=== PATIENT | male | born 1990 | race Caucasian/White ===

== ENCOUNTER 2017-05-10 13:56 | Emergency (ER) | payer MEDICAID ==
[~2017-05-10] VITALS: Ht 177.8 cm; Wt 86.8 kg
[~2017-05-10 13:56] MED LIST: NO HOME MEDS
[2017-05-10 14:01] VITALS: BP 120/83
[2017-05-10 14:18] LABS: CLARITY,URINE CLOUDY (Clear); COLOR,URINE YELLOW (Yellow); GLUCOSE, URINE NEGATIVE (Neg); KETONES,URINE NEGATIVE (Neg); LEUKOCYTE ESTERASE ,URINE SMALL (Neg); NITRITES, URINE NEGATIVE (Neg); OCCULT BLOOD,URINE TRACE-INTACT (Neg); PROTEIN,URINE TRACE mg/dl (Neg)
[2017-05-10 14:28] LABS: UA COLLECTION TYPE VOIDED
[2017-05-10 14:33] LABS: WBC,URINE 20-30 /HPF (0-4)
[2017-05-10 14:34] LABS: BACTERIA,URINE FEW /HPF (Neg); SQUAMOUS EPITHELIAL CELL,UR NONE SEEN /LPF (FEW)
[2017-05-10] MEDS ORDERED: CIPR-230 PO (14:42)
== END 2017-05-10 14:49 | disposition home or self-care (01) ==
LOC: ER 13:57
DX: N39.0 Urinary tract infection, site not specified (principal); G89.29 Other chronic pain; F12.10 Cannabis abuse, uncomplicated
CPT/HCPCS: 36415; 81001; 87088; 87491; 99284

== ENCOUNTER 2017-08-27 20:23 | Emergency (ER) | payer MEDICAID ==
[~2017-08-27] VITALS: Ht 177.8 cm; Wt 88.4 kg
[2017-08-28] MEDS ORDERED: BUPIVAcaine/PF 2.5 mg/ml (0.25%) 30ml vial IJ ONE (00:45)
[2017-08-28] MEDS ORDERED: TETanus/Pertussis (Acell)/Diphther VAC/PF (Tdap-Adult) 0.5ml syringe IMVAC ONE (00:45)
[2017-08-28] MEDS ORDERED: HYDR-569 PO (01:21)
[2017-08-28 02:24] VITALS: BP 135/76
== END 2017-08-28 02:30 | disposition home or self-care (01) ==
LOC: ER 20:24
DX: S61.011A Laceration without foreign body of right thumb without damage to nail, initial encounter (principal); G89.29 Other chronic pain; F12.10 Cannabis abuse, uncomplicated; Z79.899 Other long term (current) drug therapy; W25.XXXA Contact with sharp glass, initial encounter; Y93.89 Activity, other specified; Y92.89 Other specified places as the place of occurrence of the external cause; Y99.8 Other external cause status
CPT/HCPCS: 12002; 90471; 90715; 99283; A6255; A6449